=== PATIENT | female | born 1970 | race Caucasian/White ===

== ENCOUNTER 2022-08-31 14:51 | Emergency (ER) | payer BC ==
[~2022-08-31] VITALS: Ht 160 cm; Wt 61.2 kg
[~2022-08-31 14:51] MED LIST: AMOX500C2 PO; IBUP200C5 PO
[2022-08-31 14:55] VITALS: BP 140/84
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
[2022-08-31] MEDS ORDERED: CARI350T PO (15:28)
--- NOTE | 2022-08-31 15:29 | NUR ---
PT SEEN BY MD AT BEDSIDE
--- NOTE | 2022-08-31 15:41 | NUR ---
Patient discharged to home in stable condition. Written and verbal after care instructions given. Patient verbalizes understanding of instruction.
== END 2022-08-31 15:43 | disposition home or self-care (01) ==
LOC: ER 14:55
DX: M54.9 Dorsalgia, unspecified (principal); Z79.899 Other long term (current) drug therapy